=== PATIENT | female | born 1985 | race Caucasian/White ===

== ENCOUNTER 2016-08-21 22:28 | Outpatient (CLI) | payer MEDICAID ==
[2016-08-21 22:56] LABS: APPEARANCE,URINE SLIGHTLY-CLOUDY; BILIRUBIN,URINE NEGATIVE (NEGATIVE); GLUCOSE, URINE NEGATIVE (NEGATIVE); KETONES,URINE NEGATIVE (NEGATIVE); LEUKOCYTE ESTERASE,URINE TRACE (NEGATIVE); NITRITE,URINE NEGATIVE (NEGATIVE); PROTEIN,URINE NEGATIVE (NEGATIVE); URINE SPECIFIC GRAVITY 1.018; UROBILINOGEN,URINE NEGATIVE mg/dL (<2.0)
[2016-08-21 23:13] LABS: URINE BARBITURATES SCREEN NEGATIVE; URINE METHADONE SCREEN NEGATIVE; URINE OPIATES LOW NEGATIVE; URINE PHENCYCLIDINE SCREEN NEGATIVE
[2016-08-22 00:30] LABS: CHLAM PCR NOT DETECTED (NOT DETECT)
--- NOTE | 2016-08-22 04:45 | Antepartum Discharge Summary ---
Antepartum DC Datetime Report Generated by CPN: 08/22/2016 04:45 DIET/ACTIVITY/RESTRICTIONS Diet: Regular (08/22/2016 00:54:Jessie Murray, RN) Activity: Normal Activity (08/22/2016 00:54:Jessie Murray, RN) TEACHING/INSTRUCTIONS/REFERRALS Instructions Given To: Patient (08/22/2016 00:54:Jessie Murray, RN) Instructions Understood: Patient Verbalized Understanding (08/22/2016 00:54:Jessie Murray, RN) Referrals: None (08/22/2016 00:54:Jessie Murray, RN) Educational Materials- Other: Labor (08/22/2016 00:54:Jessie Murray, RN) DISCHARGE INFORMATION Discharged AMA: No (08/22/2016 00:54:Jessie Murray, RN) Discharge Date/Time: 08/22/2016 00:48 (08/22/2016 00:54:Jessiegarcia Murray RN) Discharged To: Home (08/22/2016 00:54:Jessie Trevor RN) Discharge Provider Name: Anderson (08/22/2016 00:54:Jessie Murray RN) Discharge Method: Ambulatory (08/22/2016 00:54:Jessie Murray, RN) Condition: Stable (08/22/2016 00:54:Jessie Murray, RN) FOLLOW UP INFORMATION Follow Up With: [facility] (08/22/2016 00:54:Jessie Murray RN) Follow Up On: As Scheduled (08/22/2016 00:54:Jessie Murray, RN) Follow Up Phone Number: [facility] - (08/22/2016 00:54:Jessie Murray RN) Comments: advised patient to return for contractions, decreased movement, bleeding like a period, or leaking of fluid. Patient without questions at this time. (08/22/2016 00:54:Jessie Murray RN)
--- NOTE | 2016-08-22 04:45 | L&D Discharge Summary ---
OB Discharge Summary Datetime Report Generated by CPN: 08/22/2016 04:45 DISCHARGE DIAGNOSIS Diagnosis/Symptoms: False Labor Diagnoses/Symptoms Other: negative priscila/chlam Gestation: 25.2 Number of Babies in Womb: 1 Parity: 1 DIET/ACTIVITY/RESTRICTIONS Diet: Regular Activity: Normal Activity TEACHING/INSTRUCTIONS/REFERRALS Instructions Given To: Patient Instructions Understood: Patient Verbalized Understanding Referrals: None Educational Materials- Other: Labor DISCHARGE INFORMATION Discharged AMA: No Discharge Date/Time: 08/22/2016 00:48 Discharged To: Home Discharge Provider Name: Anderson Discharge Method: Ambulatory Condition: Stable FOLLOW UP INFORMATION Follow Up With: [facility] Follow Up On: As Scheduled Follow Up Phone Number: [facility] - Comments: advised patient to return for contractions, decreased movement, bleeding like a period, or leaking of fluid. Patient without questions at this time.
--- NOTE | 2016-08-22 04:45 | L&D Flow Sheet ---
LD Flowsheet Datetime Report Generated by CPN: 08/22/2016 04:45 Datetime: 08/22/2016 00:45 NBP Sys/Anahy/Mean (mmHg): 129 (QS system process) : 69 (QS system process) : 92 (QS system process) Pulse: 98 (QS system process) Additional Nursing Comments: Pt okay for discharge. (Lisa Lattibeadelphine, RN) LaborFlag: Antepartum (QS system process) Datetime: 08/22/2016 00:44 Uterine Activity Monitor Mode: Palpation (Jessie Murray, RN) Frequency (min): none (Jessie Murray, RN) Datetime: 08/22/2016 00:31 Respirations: 18 (Jessie Murray, RN) Temperature (F): 97.9 (Jessie Murray, RN) Temperature (C): 36.6 (QS system process) Uterine Activity Monitor Mode: External (Jessie Murray, RN) Frequency (min): none (Jessie Murray, RN) Contraction Comments: toco baseline at 0 (Jessie Murray, RN) Pain Pain Scale: 0 (Jessie Murray, RN) Pain Presence: None/Denies (Jessie Murray, RN) Pain Type: N/A (Jessie Murray, RN) LaborFlag: Antepartum (QS system process) Datetime: 08/22/2016 00:00 Uterine Activity Monitor Mode: External; Palpation (Jessie Murray, RN) Frequency (min): none (Jessie Murray, RN) Contraction Comments: toco baseline at 0 (Jessie Murray, RN) Datetime: 08/21/2016 23:34 Uterine Activity Monitor Mode: Palpation (Jessie Murray, RN) Frequency (min): none (Jessie Murray, RN) Datetime: 08/21/2016 23:30 Vital Signs Stage of : Antepartum (Jessie Murray, RN) Uterine Activity Monitor Mode: External; Palpation (Jessie Murray, RN) Frequency (min): none (Jessie Murray, RN) Communication Communication: RN at Bedside; RN Reviewed Strip (Jessie Murray, RN) Datetime: 08/21/2016 23:00 Vital Signs Stage of : Antepartum (Jessie Murray, RN) Uterine Activity Monitor Mode: External; Palpation (Jessie Murray, RN) Frequency (min): none (Jessie Murray, RN) Communication Communication: RN at Bedside (Jessie Murray, RN) Datetime: 08/21/2016 22:54 NBP Sys/Anahy/Mean (mmHg): 129 (QS system process) : 74 (QS system process) : 94 (QS system process) Pulse: 100 (QS system process) Datetime: 08/21/2016 22:51 Pain Pain Scale: 0 (Jessie Murray, RN) Pain Presence: None/Denies (Jessie Murray, RN) Pain Type: N/A (Jessie Murray, RN) Vaginal Exam Vaginal Bleeding: None (Jessie Murray, RN) Maternal Assessment Level of Consciousness: Fully Conscious (Jessie Murray, RN) DTR's/Clonus: DTRs 2+; No Clonus (Jessie Murray, RN) Headache: Denies (Jessie Murray, RN) Breath Sounds, Left: Clear and Equal (Jessie Murray, RN) Breath Sounds, Right: Clear and Equal (Jessie Murray, RN) Nausea/Vomiting: Denies (Jessie Murray, RN) RUQ Epigastric Pain: Denies (Jessie Murray, RN) Datetime: 08/21/2016 22:47 Assessment A Monitor Mode: External US (Jessie HO Murray) FHR Baseline Rate : 145 (Jessiegarcia Murray RN)
--- NOTE | 2016-08-22 04:45 | L&D Admission Assessment ---
LD ADM ASMT Datetime Report Generated by CPN: 08/22/2016 04:45 PATIENT ASSESSMENT Assessment Type: Triage (08/21/2016 22:51:Jessie Murray, RN) WEIGHT Weight (lb): 262 (08/21/2016 22:41:QS system process) Weight (kg): 119.1 (08/21/2016 22:41:QS system process) PAIN Pain Scale: 0 (08/22/2016 00:31:Jessie Murray, RN) Pain Scale: 0 (08/21/2016 22:51:Jessie Murray, RN) Pain Presence: None/Denies (08/22/2016 00:31:Jessie Murray, RN) Pain Presence: None/Denies (08/21/2016 22:51:Jessie Murray, RN) Pain Type: N/A (08/22/2016 00:31:Jessie Murray, RN) Pain Type: N/A (08/21/2016 22:51:Jessie Murray, RN) CONTRACTIONS Frequency (min): none (08/22/2016 00:44:Jessie Murray, RN) Frequency (min): none (08/22/2016 00:31:Jessie Murray, RN) Frequency (min): none (08/22/2016 00:00:Jessie Murray, RN) Frequency (min): none (08/21/2016 23:34:Jessie Murray, RN) Frequency (min): none (08/21/2016 23:30:Jessie Murray, RN) Frequency (min): none (08/21/2016 23:00:Jessie Murray, RN) Contraction Comments: toco baseline at 0 (08/22/2016 00:31:Jessie Murray, RN) Contraction Comments: toco baseline at 0 (08/22/2016 00:00:Jessie Murray, RN) NEURO Level of Consciousness: Fully Conscious (08/21/2016 22:51:Jessie Murray, RN) DTR's/Clonus: DTRs 2+; No Clonus (08/21/2016 22:51:Jessie Murray, RN) Headache: Denies (08/21/2016 22:51:Jessie Murray, RN) Dizziness: No (08/21/2016 22:51:Jessie Murray, RN) Blurred Vision: No (08/21/2016 22:51:Jessie Murray, RN) Extremity Numbness/Tingling : None (08/21/2016 22:51:Jessie Murray, RN) Extremity Movement: Full Range of Motion (08/21/2016 22:51:Jessie Murray, RN) CARDIOVASCULAR Heart Rhythm: Regular (08/21/2016 22:51:Jessie Murray RN) Nailbeds: [place] (08/21/2016 22:51:Jessie Murray RN) Capillary Refill: Less than 3 Seconds (08/21/2016 22:51:Jessie Murray RN) Lower Extremities Edema: None (08/21/2016 22:51:Jessie Murray RN) Lower Extremities Edema Degree: None (08/21/2016 22:51:Jessie Murray RN) Upper Extremities Edema: None (08/21/2016 22:51:eJssie Murray RN) Upper Extremities Edema Degree: None (08/21/2016 22:51:Jessie Murray RN) Facial Edema: None (08/21/2016 22:51:Jessie Murray RN) Vanessa's Sign Left Leg: Negative (08/21/2016 22:51:Jessie Murray RN) Vanessa's Sign Right Leg: Negative (08/21/2016 22:51:Jessie Murray RN) DVT RISK ASSESSMENT DVT Risk Age: Age less than 41 years (08/21/2016 22:51:Jessie Murray RN) DVT Risk BMI: BMI 31 to 40 (08/21/2016 22:51:Jessie Murray RN) DVT Risk Surgery: None Applicable (08/21/2016 22:51:Jessie Murray RN) DVT Risk Other: None Applicable (08/21/2016 22:51:Jessie Murray RN) DVT Risk Total: 1 (08/21/2016 22:51:QS system process) DVT Risk Text: Low Risk (<10%) No specific measures, early ambulation (08/21/2016 22:51:QS system process) RESPIRATORY Respiratory Effort: Unlabored; Regular Rhythm; Equal Expansion (08/21/2016 22:51:Jessie Murray, RN) Breath Sounds, Left: Clear and Equal (08/21/2016 22:51:Jessie Murray, RN) Breath Sounds, Right: Clear and Equal (08/21/2016 22:51:Jessie Murray, RN) Cough Productivity: None (08/21/2016 22:51:Jessie Murray, RN) GASTROINTESTINAL Nausea/Vomiting: Denies (08/21/2016 22:51:Jessie Murray, RN) Bowel Sounds: Normoactive (08/21/2016 22:51:Jessie Murray, RN) RUQ Epigastric Pain: Denies (08/21/2016 22:51:Jessie Murray, RN) Bowel Patterns: Soft, Formed Stool (08/21/2016 22:51:Jessie Murray, RN) Hemorrhoids: None (08/21/2016 22:51:Jessie Murray, RN) Diet Type: Regular diet (08/21/2016 22:51:Jessie Murray, RN) GENITOURINARY Frequency of Urination: No (08/21/2016 22:51:Jsesie Murray, RN) Urination Burning: No (08/21/2016 22:51:Jessie Murray, RN) CVA Tenderness: No (08/21/2016 22:51:Jessie Murray, RN) INTEGUMENTARY Skin Color: Normal for Race (08/21/2016 22:51:Jessie Murray, RN) Skin Temperature: Warm (08/21/2016 22:51:Jessie Murray, RN) Skin Moisture: Dry (08/21/2016 22:51:Jessie Murray, RN) Surgical Scars: L ankle (08/21/2016 22:51:Jessie Murray, RN) JAIME SKIN ASSESSMENT Jaime Scale Sensory Perception: No Impairment- Responds to verbal commands. Has no sensory deficit which would limit ability to feel or voice pain or discomfort (08/21/2016 22:51:Jessie Murray RN) Jaime Scale Moisture: Rarely Moist- Skin is usually dry. Linen only requires changing at routine intervals (08/21/2016 22:51:Jessie Murray RN) Jaime Scale Activity: Walks Frequently- Walks outside the room at least twice a day and inside room at least every 2 hours during the day. (08/21/2016 22:51:Jessie Murray RN) Jaime Scale Mobility: No Limitations- Makes major and frequent changes in position without assistance (08/21/2016 22:51:Jessie Murray RN) Jaime Scale Nutrition: Excellent- Eats most of every meal. Never refuses a meal. Usually eats a total of 4 or more servings of meat and dairy products. Occasionally eats between meals. Does not require supplementation (08/21/2016 22:51:Jessie Murray RN) Jaime Scale Friction and Shear: No Apparent Problem- Moves in bed and in chair independently and has sufficient muscle strength to lift up completely during move. Maintains good position in bed or chair at all times (08/21/2016 22:51:Jessie Murray RN) Jaime Scale Total: 23 (08/21/2016 22:51:QS system process) Jaime Scale Risk: No Risk of Pressure Ulcer Noted at this Time (08/21/2016 22:51:QS system process) SUPPORT Emotional State: Calm/Relaxed (08/21/2016 22:51:Jessie Murray, RN) SAFETY Call Hinojosa Within Reach: Yes (08/21/2016 22:51:Jessie Murray, RN) Side Rails Up: Yes (08/21/2016 22:51:Jessie Murray, RN) Bed Wheels Locked: Yes (08/21/2016 22:51:Jessie Murray, RN) Arm Bands Present: Yes (08/21/2016 22:51:Jessie Murray, RN) Isolation: [place] (08/21/2016 22:51:Jessie Murray, RN) FALL SCREEN Fall Risk History of Falling: (0) No (08/21/2016 22:51:Jessie Murray RN) Fall Risk Secondary Diagnosis: (0) No (08/21/2016 22:51:Jessie Murray RN) Fall Risk Ambulatory Aid: (0) None/Bedrest/Wheelchair/Nurse Assist (08/21/2016 22:51:Jessie Murray RN) Fall Risk IV Therapy: (0) No (08/21/2016 22:51:Jessie Murray RN) Fall Risk Gait: (0) Normal/Bedrest/Immobile (08/21/2016 22:51:Jessie Murray RN) Fall Risk Mental Status: (0) Oriented to Own Ability (08/21/2016 22:51:Jessie Murray RN) Fall Risk Score: 0 (08/21/2016 22:51:QS system process) Fall Risk Score Definition: No Risk: No action required (08/21/2016 22:51:QS system process) BABY A FHR Baseline Rate (bpm) Baby A: 145 (08/21/2016 22:47:Jessie Murray RN)
--- NOTE | 2016-08-22 04:45 | L&D Current Admission ---
Current Admit Datetime Report Generated by CPN: 08/22/2016 04:45 ADMISSION INFORMATION Chief Complaint: Other (Annotations: suspects chlamydia infection) (08/21/2016 22:51:Jessie Trevor, HO)
--- NOTE | 2016-08-22 04:45 | L&D General Admission ---
General Admit Datetime Report Generated by CPN: 08/22/2016 04:45 INFORMATION Patient Age: 31 (08/21/2016 22:28:QS system process) EDC: 12/02/2016 00:00 (08/21/2016 22:43:Lisa Roberts RN) : 3 (08/21/2016 22:43:Lisa Roberts RN) Para: 1 (08/22/2016 00:54:Jessie Murray RN) Para: 1 (08/21/2016 22:43:Lisa Roberts RN) Term: 1 (08/21/2016 22:43:Lisa Roberts RN) : 0 (08/21/2016 22:43:Lisa Roberts RN) Spontaneous Abortions: 1 (08/21/2016 22:43:Lisa Roberts RN) Induced Abortions: 0 (08/21/2016 22:43:Lisa Roberts RN) Livin (08/21/2016 22:43:Lisa Roberts RN) Cesareans: 0 (08/21/2016 22:43:Lisa Roberts RN) VBACs: 0 (08/21/2016 22:43:Lisa Roberts RN) Ectopic: 0 (08/21/2016 22:43:Lisa Roberts RN) Multiple Births: 0 (08/21/2016 22:43:Lisa Roberts RN) Baby, Number in Womb: 1 (08/22/2016 00:54:Jessie Murray RN) Baby, Number in Womb: 1 (08/21/2016 22:43:Lisa oRberts RN) CARE Primary Solvent Plant Treater: [facility] (08/21/2016 22:43:Lisa Roberts RN) Solvent Plant Treater Other: [facility] (08/21/2016 22:43:Lisa Roberts RN) Height (in): 66 (08/21/2016 22:41:QS system process) ALLERGIES Medication Allergy: No (08/21/2016 22:43:Lisa Roberts RN) Medication Allergies: No Known Allergies (08/21/2016) (08/21/2016 22:40:QS system process) Medication Allergies: No Known Allergies (08/30/2015) (08/21/2016 22:28:QS system process) Latex Allergy: No Latex Allergies (08/21/2016 22:43:Jessie Murray RN) Food Allergies: none (08/21/2016 22:43:Jessie Murray RN) Environmental Allergies: seasonal (08/21/2016 22:43:Jessie Murray RN) COMMUNICATION Primary Language: Japanese (08/21/2016 22:43:Lisa Roberts RN) Medical Tx Preferred Language: Japanese (08/21/2016 22:43:Lisa Roberts RN) DEMOGRAPHICS Address: [address] [place] [id number] (08/21/2016 22:28:QS system process) Zipcode: [id number] (08/21/2016 22:28:QS system process) Home (08/21/2016 22:28:QS system process) Work (08/21/2016 22:28:QS system process) SSN: [id number] (08/21/2016 22:28:QS system process) Next of Kin Name: REFUSED PT (08/21/2016 22:28:QS system process) Next of Kin (08/21/2016 22:28:QS system process) Next of Kin Relationship: UNK (08/21/2016 22:28:QS system process) Date of : 1985 (08/21/2016 22:28:QS system process) Marital Status: Single (08/21/2016 22:28:QS system process) Sex: Female (08/21/2016 22:28:QS system process) Race: (08/21/2016 22:28:QS system process) Ethnicity: Non- or (08/21/2016 22:28:QS system process) Synagogue: None (08/21/2016 22:28:QS system process) DRUG AND ALCOHOL USE Alcohol: No (08/21/2016 22:43:Jessie Murray RN) Cigarettes: Former Smoker. [id number] (08/21/2016 22:43:Jessie Murray RN) Marijuana: No (08/21/2016 22:43:Jessie Murray RN) Cocaine: No (08/21/2016 22:43:Jessie Murray RN) Other Illicit Drugs: No (08/21/2016 22:43:Jessie Murray, RN) VACCINE HISTORY Influenza Vaccine: Yes (08/21/2016 22:43:Jessie Murray RN) Pneumococcal Vaccine: No (08/21/2016 22:43:Jessie Murray RN) Tetanus Vaccine: No (08/21/2016 22:43:Jessie Murray RN) Tdap Vaccine: No (08/21/2016 22:43:Jessie Murray RN) Hepatitis B Vaccine: Yes (08/21/2016 22:43:Jessie Murray, RN) Feeding Preference: Both (08/21/2016 22:43:Jessie Murray RN) Benefit of Breast Feed Discussed: Yes (08/21/2016 22:43:Jessie Murray RN) Circumcision: Yes (08/21/2016 22:43:Jessie Murray RN) Classes Attended: No (08/21/2016 22:43:Jessie Murray RN) Tubal Ligation: No (08/21/2016 22:43:Jessie Murray RN) Tubal Authorization Signed: N/A (08/21/2016 22:43:Jessie Murray RN) Consent: N/A (08/21/2016 22:43:Jessie Murray RN) Consent Signed: N/A (08/21/2016 22:43:Jessie Murray RN) Pain Management Plans: None (08/21/2016 22:43:Jessie Murray RN) Plans for Labor and Delivery: None (08/21/2016 22:43:Jessie Murray RN) Cultural/Spritual Practice: No (08/21/2016 22:43:Jessie Murray RN) Spir/Cult Dietary Needs: No (08/21/2016 22:43:Jessie Murray RN) LIVING SITUATION/DISCHARGE PLAN Living Arrangements: Apartment (08/21/2016 22:43:Jessie Murray RN) Adequate Access to:: Electric; Heat; Refrigeration; Plumbing/Running water; Phone; Transportation (08/21/2016 22:43:Jessie Murray RN) WIC Program: Yes (08/21/2016 22:43:Jessie Murray RN) Currently Using Commun Resources: Yes (08/21/2016 22:43:Jessie Murray RN) Specify Current Resource Used: Medicaid (08/21/2016 22:43:Jessie Murray RN) Outside Agency/Corporate Legal Secretary: No (08/21/2016 22:43:Jessie Murray RN) Car Seat for Discharge: Yes (08/21/2016 22:43:Jessie Murray RN) Adoption Requested: No (08/21/2016 22:43:Jessie Murray RN) Pt Contact w/ Post : N/A (08/21/2016 22:43:Jessie Murray RN) LABS Blood Type: O Positive (08/21/2016 22:43:Lisa Roberts RN) Antibody Screen: Negative (08/21/2016 22:43:Lisa Roberts RN) Rho(G) this : Not Applicable (08/21/2016 22:43:Lisa Roberts RN) RPR/VDRL: Nonreactive (08/21/2016 22:43:Lisa Roberts RN) HIV Results: Negative (08/21/2016 22:43:Lisa Roberts RN) Hepatitis B: Negative (08/21/2016 22:43:Lisa Roberts RN) Rubella: Immune (08/21/2016 22:43:Lisa Roberts RN) Varicella: Non Susceptible (08/21/2016 22:43:Lisa Roberts RN) OB/PREVIOUS HISTORY Previous Procedures: Ultrasound; NST (08/21/2016 22:43:Jessie Murray RN) Current Procedures: Ultrasound; NST (08/21/2016 22:43:Jessie Murray RN) History of Previous : No (08/21/2016 22:43:Jessie Murray RN) History of Gestational Diabetes: No (08/21/2016 22:43:Jessie Murray RN) History of PIH: No (08/21/2016 22:43:Jessie Murray RN) History of Incompetent Cervix: No (08/21/2016 22:43:Jessie Murray RN) History of Placenta Previa/Abrup: No (08/21/2016 22:43:Jessie Murray RN) History of Macrosomia: No (08/21/2016 22:43:Jessie Murray RN) History of IUGR: No (08/21/2016 22:43:Jessie Murray RN) History of Hemorrhage: No (08/21/2016 22:43:Jessie Murray RN) History of Loss/Stillborn: No (08/21/2016 22:43:Jessie Murray RN) History of : No (08/21/2016 22:43:Jessie Murray RN) History of D (Rh) Sensitization: No (08/21/2016 22:43:Jessie Murray RN) History Recurrent Loss/Stillborn: No (08/21/2016 22:43:Jessie Murray RN) History Depression/PP Depression: No (08/21/2016 22:43:Jessie Murray RN) History of Uterine Anomaly/JANE: No (08/21/2016 22:43:Jessie Murray RN) History of Infertility: No (08/21/2016 22:43:Jessie Murray RN) History of ART Treatment: No (08/21/2016 22:43:Jessei Murray RN) History of JANE: No (08/21/2016 22:43:Jessie Murray RN) Comments Obstetrical History: G1: 2009 male 8 pounds 2 ounces G2: SAB 2015 G3: Current (08/21/2016 22:43:Jessie Murray RN) MEDICAL HISTORY Med Hx Diabetes: No (08/21/2016 22:43:Jessie Murray RN) Med Hx Hypertension: No (08/21/2016 22:43:Jessie Murray RN) Med Hx Heart Disease: No (08/21/2016 22:43:Jessie Murray RN) Med Hx Autoimmune Disorder: No (08/21/2016 22:43:Jessie Murray RN) Med Hx Kidney Disease/UTI: No (08/21/2016 22:43:Jessie Murray RN) Med Hx Neurologic/Epilepsy: No (08/21/2016 22:43:Jessie Murray RN) Med Hx Psychiatric Disorders: No (08/21/2016 22:43:Jessie Murray RN) Med Hx Hepatitis/Liver Disease: No (08/21/2016 22:43:Jessie Murray RN) Med Hx Varicosities/Phlebitis: No (08/21/2016 22:43:Jessie Murray RN) Med Hx Thyroid Dysfunction: No (08/21/2016 22:43:Jessie Murray RN) Med Hx Trauma/Violence: No (08/21/2016 22:43:Jessie Murray RN) Med Hx Blood Transfusion: No (08/21/2016 22:43:Jessie Murray RN) Med Hx Pulmonary (Asthma,TB): No (08/21/2016 22:43:Jessie Murray RN) Med Hx Breast: No (08/21/2016 22:43:Jessie Murray RN) Med Hx TRACK GRINDER Surgery: No (08/21/2016 22:43:Jessie Murray RN) Med Hx Hospitalization/Surgery: Yes (08/21/2016 22:43:Jessie Murray RN) Med Hx Anesthetic Complications: No (08/21/2016 22:43:Jessie Murray RN) Med Hx Abnormal Pap Smear: No (08/21/2016 22:43:Jessie Murray RN) Other Medical Diseases: No (08/21/2016 22:43:Jessie Murray RN) Med Hx Significant Family Hx: No (08/21/2016 22:43:Jessie Murray RN) Details of Med/Surg Hx: surgery on L ankle 2013, childbirth 2008 (08/21/2016 22:43:Jessie Murray RN) INFECTIOUS HISTORY Inf Hx Gonorrhea: No (08/21/2016 22:43:Jessie Murray RN) Inf Hx Chlamydia: Yes (08/21/2016 22:43:Jessie Murray RN) Inf Hx Syphilis: No (08/21/2016 22:43:Jessie Murray RN) Inf Hx HIV/AIDS: No (08/21/2016 22:43:Jessie Murray RN) Inf Hx Human Papilloma Virus: No (08/21/2016 22:43:Jessie Murray RN) Inf Hx Pt/Partner Genital Herpes: No (08/21/2016 22:43:Jessie Murray RN) Inf Hx Tuberculosis/Exposure: No (08/21/2016 22:43:Jessie Murray RN) Inf Hx Hepatitis B,C: No (08/21/2016 22:43:Jessie Murray RN) Inf Hx Rash or Viral Illness: No (08/21/2016 22:43:Jessie Murray RN) Details of Infectious Hx: Chlamydia 06/2016 (08/21/2016 22:43:Jessie Murray RN) GENETIC HISTORY Gen Hx Age >=35 at [place]: No (08/21/2016 22:43:Jessie Murray RN) Gen Hx Thalassemia: No (08/21/2016 22:43:Jessie Murray RN) Gen Hx Congenital Heart Defect: No (08/21/2016 22:43:Jessie Murray RN) Gen Hx Neural Tube Defect: No (08/21/2016 22:43:Jessie Murray RN) Gen Hx Down's Syndrome: No (08/21/2016 22:43:Jessie Murray RN) Gen Hx Nestor-Sachs: No (08/21/2016 22:43:Jessie Murray RN) Gen Hx Suha: No (08/21/2016 22:43:Jessie Murray RN) Gen Hx Familial Dysautonomia: No (08/21/2016 22:43:Jessie Murray RN) Gen Hx Sickle Cell Disease/Trait: No (08/21/2016 22:43:Jessie Murray RN) Gen Hx Hemophilia/Blood Disorder: No (08/21/2016 22:43:Jessie Murray RN) Gen Hx Muscular Dystrophy: No (08/21/2016 22:43:Jessie Murray RN) Gen Hx Cystic Fibrosis: No (08/21/2016 22:43:Jessie Murray RN) Gen Hx [place] Chorea: No (08/21/2016 22:43:Jessie Murray RN) Gen Hx Mental Retardation/Autism: No (08/21/2016 22:43:Jessie Murray RN) Gen Hx Tested for Fragile X: No (08/21/2016 22:43:Jessie Murray RN) Gen Hx Other Inher/Chromosomal: No (08/21/2016 22:43:Jessie Murray RN) Gen Hx Maternal Metabolic DO: No (08/21/2016 22:43:Jessie Murray RN) Gen Hx Pt Father or FOB Defect: No (08/21/2016 22:43:Jessie Murray RN) Gen Hx Other Genetic History: No (08/21/2016 22:43:Jessie Murray RN) Gen Hx Drugs/Meds since LMP: No (08/21/2016 22:43:Jessie Murray RN)
== END 2016-08-22 00:48 | disposition home or self-care (01) ==
LOC: LC 22:28
PROVIDERS: ATTEND Obstetrics & Gynecology
PROC: 4A1HXCZ Monitoring of Products of Conception, Cardiac Rate, External Approach (ICD-10-PCS; principal; 2016-08-21)
DX: O47.02 False labor before 37 completed weeks of gestation, second trimester (principal); Z3A.25 25 weeks gestation of pregnancy
CPT/HCPCS: 80307; 81005; 87491; 87591

== ENCOUNTER 2016-11-28 10:16 | Outpatient (CLI) | payer MEDICAID ==
[2016-11-28 11:13] LABS: APPEARANCE,URINE SLIGHTLY-CLOUDY; BILIRUBIN,URINE NEGATIVE (NEGATIVE); GLUCOSE, URINE NEGATIVE (NEGATIVE); KETONES,URINE NEGATIVE (NEGATIVE); LEUKOCYTE ESTERASE,URINE SMALL (NEGATIVE); NITRITE,URINE NEGATIVE (NEGATIVE); PROTEIN,URINE NEGATIVE (NEGATIVE); URINE SPECIFIC GRAVITY 1.014; UROBILINOGEN,URINE NEGATIVE mg/dL (<2.0)
[2016-11-28 11:28] LABS: ABSOLUTE BASOPHILS # (AUTO) 0.1 10^3/uL (0.0-0.2); ABSOLUTE EOSINOPHILS # (AUTO) 0.2 10^3/uL (0.0-0.6); ABSOLUTE LYMPHOCYTES (AUTO) 2.1 10^3/uL (0.5-4.7); ABSOLUTE MONOCYTES (AUTO) 0.7 10^3/uL (0.1-1.4); ABSOLUTE NEUT (AUTO) 6.6 10^3/uL (1.7-8.2); BASOPHILS % (AUTO) 0.6 % (0-2); HEMATOCRIT 36.8 % (36.0-47.0); HEMOGLOBIN 12.7 g/dL (12.0-15.5); HGB HCT DIFFERENCE 1.3; LYMPHOCYTES % (AUTO) 21.7 % (13-45); MEAN CORPUSCULAR HEMOGLOBIN 30.2 pg (27.0-33.4); MEAN CORPUSCULAR HGB CONC 34.5 g/dL (32.0-36.0); MEAN CORPUSCULAR VOLUME 88 fl (80-97); MONOCYTES % (AUTO) 7.3 % (3-13); RED CELL DISTRIBUTION WIDTH 14.1 % (11.5-14.0); SEGMENTED NEUTROPHILS % (AUTO) 68.4 % (42-78); WHITE BLOOD COUNT 9.6 10^3/uL (4.0-10.5)
[2016-11-28 11:40] LABS: URINE BARBITURATES SCREEN NEGATIVE; URINE METHADONE SCREEN NEGATIVE; URINE OPIATES LOW NEGATIVE; URINE PHENCYCLIDINE SCREEN NEGATIVE
[2016-11-28 11:47] LABS: ALANINE AMINOTRANSFERASE 28 U/L (9-52); ALBUMIN 3.5 g/dL (3.5-5.0); ALKALINE PHOSPHATASE 126 U/L (38-126); ANION GAP 10 (5-19); ASPARTATE AMINO TRANSFERASE 20 U/L (14-36); BILIRUBIN,DIRECT 0.2 mg/dL (0.0-0.4); BILIRUBIN,TOTAL 0.4 mg/dL (0.2-1.3); BLOOD UREA NITROGEN 9 mg/dL (7-20); CALCIUM 10.3 mg/dL (8.4-10.2); CARBON DIOXIDE 23 mmol/L (22-30); CHLORIDE 106 mmol/L (98-107); CREATININE RESULT 0.58 mg/dL (0.52-1.25); GLUCOSE 101 mg/dL (75-110); LDH 375 U/L (313-618); POTASSIUM 4.4 mmol/L (3.6-5.0); SODIUM 139.2 mmol/L (137-145); TOTAL PROTEIN 6.6 g/dL (6.3-8.2); URIC ACID 5.1 mg/dL (2.5-6.2)
[2016-11-28 11:55] LABS: URINE CREATININE 137.7 mg/dL (16-327); URINE PROTEIN 18.9 mg/dL (<12)
== END 2016-11-28 12:39 | disposition home or self-care (01) ==
LOC: LC 10:16
PROVIDERS: ATTEND Student in an Organized Health Care Education/Training Program
PROC: 4A1HXCZ Monitoring of Products of Conception, Cardiac Rate, External Approach (ICD-10-PCS; principal; 2016-11-28)
DX: O16.3 Unspecified maternal hypertension, third trimester (principal); O47.1 False labor at or after 37 completed weeks of gestation; Z3A.39 39 weeks gestation of pregnancy
CPT/HCPCS: 36415; 59025; 80053; 80307; 81001; 82570; 83615; 84156; 84550; 85025

== ENCOUNTER 2016-12-06 18:11 | Inpatient (IN) | payer MEDICAID ==
[2016-12-06 19:00] LABS: APPEARANCE,URINE CLOUDY; BILIRUBIN,URINE NEGATIVE (NEGATIVE); GLUCOSE, URINE 50 mg/dL (NEGATIVE); KETONES,URINE NEGATIVE (NEGATIVE); LEUKOCYTE ESTERASE,URINE MODERATE (NEGATIVE); NITRITE,URINE NEGATIVE (NEGATIVE); PROTEIN,URINE 100 mg/dL (NEGATIVE); UROBILINOGEN,URINE NEGATIVE mg/dL (<2.0)
[2016-12-06 19:13] LABS: AMNISURE (ROM) POSITIVE (NEGATIVE)
[2016-12-06] MEDS ORDERED: PENICILLIN G-K 5 MILLION UNIT VIAL ONE ×2 (19:29→23:46)
[2016-12-06] MEDS ORDERED: RINGERS SOLUTION,LACTATED 1,000 ML IV ONE (19:38)
[2016-12-06] MEDS ORDERED: PENICILLIN G POTASSIUM 5,000,000 UNIT in DEXTROSE 5%-WATER 100 ML IV ONE (19:38)
[2016-12-06 20:01] LABS: ABSOLUTE BASOPHILS # (AUTO) 0.1 10^3/uL (0.0-0.2); ABSOLUTE EOSINOPHILS # (AUTO) 0.1 10^3/uL (0.0-0.6); ABSOLUTE LYMPHOCYTES (AUTO) 2.3 10^3/uL (0.5-4.7); ABSOLUTE MONOCYTES (AUTO) 0.8 10^3/uL (0.1-1.4); BASOPHILS % (AUTO) 0.4 % (0-2); EOSINOPHILS % (AUTO) 1.1 % (0-6); HEMATOCRIT 38.3 % (36.0-47.0); HEMOGLOBIN 12.8 g/dL (12.0-15.5); HGB HCT DIFFERENCE 0.1; LYMPHOCYTES % (AUTO) 18.7 % (13-45); MEAN CORPUSCULAR HEMOGLOBIN 29.7 pg (27.0-33.4); MEAN CORPUSCULAR HGB CONC 33.5 g/dL (32.0-36.0); MEAN CORPUSCULAR VOLUME 89 fl (80-97); MONOCYTES % (AUTO) 6.2 % (3-13); RED BLOOD COUNT 4.31 10^6/uL (3.72-5.28); RED CELL DISTRIBUTION WIDTH 14.5 % (11.5-14.0); SEGMENTED NEUTROPHILS % (AUTO) 73.6 % (42-78); WHITE BLOOD COUNT 12.2 10^3/uL (4.0-10.5)
[2016-12-06] MEDS ORDERED: MISOPROSTOL 0.1 MG TABLET PV ONE (20:40)
[2016-12-06] MEDS ORDERED: MISOPROSTOL 0.1 MG TABLET ONE (20:47)
[2016-12-06] MEDS: MISOPROSTOL 0.1 MG TABLET PO SCH (21:08)
[2016-12-06] MEDS ORDERED: PENICILLIN G POTASSIUM 2,500,000 UNIT in DEXTROSE 5%-WATER 50 ML IV SCH (23:39)
[2016-12-06 23:49] LABS: URINE BARBITURATES SCREEN NEGATIVE; URINE METHADONE SCREEN NEGATIVE; URINE OPIATES LOW NEGATIVE; URINE PHENCYCLIDINE SCREEN NEGATIVE
[2016-12-06] MEDS: PENICILLIN G-K 5 MILLION UNIT VIAL IV SCH (23:51)
[2016-12-07] MEDS ORDERED: ZOLPIDEM TARTRATE 5 MG TABLET PO PRN ×2 (00:08→05:49)
[2016-12-07] MEDS ORDERED: OXYTOCIN/NORMAL SALINE 1,000 ML IV PRN ×2 (01:05→05:49)
[2016-12-07] MEDS ORDERED: ONDANSETRON HCL INJ/PF 4 MG/2 ML SDV ONE (01:11)
[2016-12-07] MEDS ORDERED: NALBUPHINE HCL INJ 10 MG/1 ML AMPULE ONE (01:11)
[2016-12-07] MEDS ORDERED: NALBUPHINE HCL INJ 10 MG/1 ML AMPULE INJ ONE (01:15)
[2016-12-07] MEDS ORDERED: ONDANSETRON HCL INJ/PF 4 MG/2 ML SDV IV ONE (01:15)
[2016-12-07] MEDS ORDERED: OXYTOCIN/NORMAL SALINE 0 UNIT/0 ML RTUINJ ONE (01:31)
[2016-12-07] MEDS: MISOPROSTOL 0.1 MG TABLET PO SCH (02:18)
[2016-12-07] MEDS ORDERED: EPHEDRINE SULFATE INJ 50 MG/1 ML AMPULE IV PRN (03:36)
[2016-12-07] MEDS ORDERED: BENZOIN/ALOE VERA/STORAX/TOLU TINCTURE 60 ML TP PRN (03:36)
[2016-12-07] MEDS ORDERED: EPHEDRINE SULFATE INJ 50 MG/1 ML AMPULE IV ONE (03:36)
[2016-12-07] MEDS ORDERED: BUPIVACAINE HCL 0.25 % INJ/PF (2.5 MG/1 ML) 30 ML VIAL INFIL ONE (03:36)
[2016-12-07] MEDS ORDERED: FENTANYL/BUPIVACAINE/NS/PF 100 ML EPI PRN (03:36)
[2016-12-07] MEDS ORDERED: EPHEDRINE SULFATE INJ 50 MG/1 ML AMPULE ONE (03:42)
[2016-12-07] MEDS ORDERED: FENTANYL/BUPIVACAINE/NS/PF 200 MCG/100 ML RTUINJ EPI ONE (03:43)
[2016-12-07] MEDS ORDERED: BUPIVACAINE HCL 0.25 % INJ/PF (2.5 MG/1 ML) 30 ML VIAL ONE (03:43)
[2016-12-07] MEDS ORDERED: PENICILLIN G-K 5 MILLION UNIT VIAL ONE (04:05)
[2016-12-07] MEDS: PENICILLIN G-K 5 MILLION UNIT VIAL IV SCH (04:31)
[2016-12-07] MEDS ORDERED: MISOPROSTOL 0.2 MG TABLET ONE (04:38)
[2016-12-07] MEDS ORDERED: LIDOCAINE 1% INJ-PF (10 MG/ML) 30 ML SDV ONE (04:39)
[2016-12-07] MEDS ORDERED: OXYTOCIN/NORMAL SALINE 20 UNIT/1,000 ML RTUINJ ONE (04:39)
[2016-12-07] MEDS ORDERED: ACETAMINOPHEN WITH CODEINE #3 TABLET PO PRN ×2 (05:49)
[2016-12-07] MEDS ORDERED: DIBUCAINE 1% OINTMENT 28 GM TP PRN (05:49)
[2016-12-07] MEDS ORDERED: BENZOCAINE/MENTHOL AEROSOL SPRAY 56 ML TOP PRN (05:49)
[2016-12-07] MEDS ORDERED: DIPH/PERTUSS(ACELL)/TETANUS VAC/PF 0.5 ML SYR (>=10YO) IM PRN (05:49)
[2016-12-07] MEDS ORDERED: MEASLES,MUMPS&RUBELLA VACC/PF 0.5 ML VIAL SUBCUT PRN (05:49)
[2016-12-07] MEDS: IBUPROFEN 800 MG TABLET PO SCH ×3 (06:08→21:17)
[2016-12-07] MEDS ORDERED: IBUPROFEN 800 MG TABLET ONE (06:10)
--- NOTE | 2016-12-07 06:18 | Delivery Summary ---
Del Sum A-C Datetime Report Generated by CPN: 12/07/2016 06:17 DELIVERY PERSONNEL DELIVERY PERSONNEL: ,[id number] Delivery Doctor:: Maria Luisa Ackerman MD Anesthesiologist:: Odilon Grajeda MD Labor and Delivery Nurse:: Niesha Arevalo RNasphalt layer Nurse:: Ana María Nevarez RN Fruit Harvester:: Beena Das RN Bench Manager/AUTO PARTS COUNTER PERSON: Sara Santillan CNA MATERNAL INFORMATION Delivery Anesthesia: Epidural Medications After Delivery: Pitocin Bolus-Please Comment Estimated Blood Loss (ml): 200 Maternal Complications: None LABOR SUMMARY EDC: 12/02/2016 00:00 No. Babies in Womb: 1 Attempted: No Labor Anesthesia: Epidural LABOR INFORMATION Reason for Induction: Premature Rupture of Membranes Onset of Labor: 12/07/2016 00:25 Complete Dilatation: 12/07/2016 04:48 Cervical Ripening Agents: Cytotec @ Oxytocin: Induction Group B Beta Strep: POSITIVE Antibiotics # of Doses: 3 Antibiotics Time of Last Dose: 0431 Name of Antibiotic Given: pcn MEMBRANES Membranes Rupture Method: Spontaneous Rupture of Membranes: 12/07/2016 16:30 Length of Rupture (hr): -11.37 Amniotic Fluid Color: Clear Amniotic Fluid Amount: Moderate Amniotic Fluid Odor: Normal STAGES OF LABOR Stage 1 hr: 4 Stage 1 min: 23 Stage 2 hr: 0 Stage 2 min: 20 Stage 3 hr: 0 Stage 3 min: 4 Total Time in Labor hr: 4 Total Time in Labor min: 47 VAGINAL DELIVERY Episiotomy: None Laceration Extension: Second Degree Laceration Type: Perineal Laceration Repair Note: 2-0 chromic repair in normal fashion Sponge Count Correct: N/A Sharps Count Correct: Yes CSECTION DELIVERY Primary Indication: N/A Secondary Indication: N/A CSection Incidence: N/A Labor: N/A Elective: N/A CSection Incision: N/A BABY A INFORMATION Infant Delivery Date/Time: 12/07/2016 05:08 Method of Delivery: Vaginal Born in Route : No : N/A Forceps: N/A Vacuum Extraction: N/A Shoulder Dystocia : No PRESENTATION/POSITION BABY A Presentation: Cephalic Cephalic Presentation: Vertex Vertex Position: Left Occipital Anterior Breech Presentation: N/A PLACENTA INFORMATION BABY A Placenta Delivery Time : 12/07/2016 05:12 Placenta Method of Delivery: Spontaneous Placenta Status: Delivered SCORES BABY A Heart Rate 1 min: >100 bpm Resp Effort 1 min: Good Cry Reflex Irritability 1 min: Cough or Sneeze or Pulls Away Muscle Tone 1 min: Active Motion Color 1 min: Body [place], Extremities Blue Resuscitation Effort 1 min: Tactile Stimulation SCORE 1 MIN: 9 Heart Rate 5 min: >100 bpm Resp Effort 5 min: Good Cry Reflex Irritability 5 min: Cough or Sneeze or Pulls Away Muscle Tone 5 min: Active Motion Color 5 min: Body [place], Extremities Blue Resuscitation Effort 5 min: Tactile Stimulation SCORE 5 MIN: 9 INFANT INFORMATION BABY A Gestational Age at Delivery: 40.5 Gestational Status: Full Term- 39- 40.6 Weeks Infant Outcome : Liveborn Infant Condition : Stable Infant Sex: Male IDENTIFICATION BABY A Infant Verification Date/Time: 12/07/2016 05:38 ID Band Number: [id number] Mother's Name Verified: Yes RN Verifying : K Mahi RN Additional Verifying Personnel: A Santillan RN WEIGHT/LENGTH BABY A Birthweight (gm): 3910 Infant Weight (lb): 8 Weight (oz): 10 Infant Length (in): 21.00 Length (cm): 53.34 CORD INFORMATION BABY A No. Cord Vessels: 3 Nuchal Cord : N/A Cord Blood Taken: Yes-For Eval (Mom's Blood Type - or O+) Infant Suction: Mouth; Nose ASSESSMENT BABY A Complications: None Infant Complications- Other: compound L hand Physical Findings at Delivery: Within Normal Limits Infant Respirations: Appears Normal Skin to Skin: Yes Product Development Coordinator/ALS Called : No Care By: Hali Nevarez RN/ R Sohail RN Transferred To: Remains with Mother BABY B INFORMATION : N/A SIGNATURES Signature: with User ID: [email or web address]
--- NOTE | 2016-12-07 09:09 | Admission Physical ---
Datetime Report Generated by CPN: 12/07/2016 09:09 CURRENT ADMISSION Chief Complaint: Suspected Ruptured Membranes Indication for Induction: PROM Admit Plan: Admit to Unit; Initiate Labor Induction Protocol Admit Plan- Other: cervical ripening with cytotec ALLERGIES Medication Allergies: No Medication Allergies: No Known Allergies (12/06/2016) Medication Allergies: No Known Allergies (08/21/2016) Medication Allergies: No Known Allergies (08/30/2015) Latex: No Latex Allergies Food Allergies: none Environmental Allergies: seasonal OBSTETRICAL HISTORY EDC: 12/02/2016 00:00 : 3 Para: 1 Para: 1 Term: 1 : 0 SAB: 1 IAB: 0 Ectopic: 0 Livin Cesareans: 0 VBACs: 0 Multiple Births: 0 Gestational Diabetes: No Rh Sensitization: No Incompetent Cervix: No JANE: No Infertility: No ART Treatment: No Uterine Anomaly: No IUGR: No Hx Previous C/S: No Macrosomia: No Hx Loss/Stillborn: No PIH: No Hx : No Placenta Previa/Abruption: No Depression/PP Depression: No PTL/PROM: No Post Hemorrhage: No Current Procedures: Ultrasound; NST Obstetrical History Comments: G1: 2008 male 8 pounds 2 ounces G2: 2015 G3: Current SEE RECORDS Alcohol: No Marijuana : No Cocaine: No Other Illicit Drugs: No Cigarettes: Former Smoker. 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 Surgery: No Heart Disease: No Hosp/Surgery: Yes Autoimmune Disorder: No Anesthetic Complications: No Kidney Disease: No Abnormal Pap Smear: No Neuro/Epilepsy: No Psychiatric Disorders: No Other Medical Diseases: No Hepatitis/Liver Disease: No Significant Family History: No Varicosities/Phlebitis: No Trauma/Violence : No Thyroid Dysfunction: No Medical History Comments: surgery on L ankle 2013, 2008 INFECTIOUS HISTORY Gonorrhea: No Genital Herpes: No Chlamydia: Yes Tuberculosis: No Syphilis: No Hepatitis: No HIV/AIDS Exposure: No Rash or Viral Illness: No HPV: No Infectious History Comments: Chlamydia 06/2016 PHYSICAL EXAM General: Normal HEENT: Normal Neurologic: Normal Thyroid: Normal Heart: Normal Lungs: Normal Breast: Normal Back: Normal Abdomen: Normal Genitourinary Exam: Normal Extremities: Normal DTRs: Normal Pelvic Type: Adequate Vital Signs: Reviewed VAGINAL EXAM Dilatation: 1 Effacement: 50 Station: -2 MEMBRANES Pooling: Positive Membranes: Ruptured Amniotic Fluid Color: Clear FETUS A EGA: 40.4 Monitoring: External US FHR- Baseline: 150 Variability: Moderate 6-25bpm Accelerations: 10X10 Decelerations: None FHR Category: Category I Estimated Weight (gm): 4000 Presentation: Vertex PLANS FOR LABOR AND DELIVERY Labor and Delivery: None Pain Management: None Feeding Preference: Both Benefit of Breast Feed Discussed: Yes Circumcision: Yes INFORMED CONSENT Signature: with User ID: [email or web address]
[2016-12-07] MEDS: SENNOSIDES/DOCUSATE 8.6-50 MG 1 EACH TABLET PO SCH (09:29)
[2016-12-07] MEDS: FERROUS SULFATE 325 MG TABLET PO SCH ×2 (09:29→17:39)
[2016-12-07] MEDS: PRENATAL VITAMIN W-O CA NO5/FE FUMARATE/FA CAPSULE PO SCH (09:29)
[2016-12-07] MEDS: DOCUSATE SODIUM 100 MG CAPSULE PO SCH ×2 (09:30→17:39)
--- NOTE | 2016-12-07 13:18 | PSYCHOLOGICAL NOTE ---
Psych Note - Psych Note Psych Note: Patient presenting odd asking staff if they put anthrax in her IV and vagina. Patient then thanked staff for not killing her. Patient states she had no mental health history and disclosed she only takes her vitamin. When asked about her concerns of being poisoned by anthrax the patient stated it was a joke; "I was in so much pain that I joked with the nurse saying they gave me anthrax." Patient then stated "I thought she knew I was joking, I am so sorry, I didn't hurt her feelings did I." Patient was observed interacting with her . She continued to disclose that she has not thought of a name yet. She stated "they told me I was having a boy, but for some reason I didn't believe them. I wanted a boy so bad I was afraid they were wrong." Patient was observed interacting with [facility] staff, asking questions about proper nursing and ensuring the baby is receiving all nutrients he needs. She also discussed circumcision with staff, to include payment and setting up external appointments. Patient is alert and orientated to person place time and circumstance. Mood is euthymic with congruent affect. Patient denies suicidal and homicidal ideation. Patient denies auditory visual hallucinations; patient is not demonstrating any behaviors congruent with responding to internal stimuli. No delusions are noted. Thought process is organized and linear. Conversational speech was within normal rate tone and prosody. Eye contact was well- maintained. Intellectual abilities appear to be within average range. Attention and concentration are good. Insight, judgment, impulse control are good. Deferred Impression\\plan: Patient is psychiatrically clear for discharge. Patient was observed with child and interacting with [facility] staff. Patient was appropriate at all times. Patient disclosed that she was in so much pain from the delivery that she joked with [facility] staff that they poison her with anthrax. Patient showed appropriate remorse for a possible misunderstanding. Patient states it was a joke. At this time there is no evidence of mental health concerns. Dr. Hurtado was consulted and the care and management of this patient; attending physician is in agreement with recommendations and disposition.
[2016-12-08] MEDS: IBUPROFEN 800 MG TABLET PO SCH ×3 (06:20→22:14)
[2016-12-08 06:44] LABS: HEMATOCRIT 32.6 % (36.0-47.0); HEMOGLOBIN 11.1 g/dL (12.0-15.5); HGB HCT DIFFERENCE 0.7; MEAN CORPUSCULAR HEMOGLOBIN 30.2 pg (27.0-33.4); MEAN CORPUSCULAR HGB CONC 33.9 g/dL (32.0-36.0); MEAN CORPUSCULAR VOLUME 89 fl (80-97); RED BLOOD COUNT 3.66 10^6/uL (3.72-5.28); RED CELL DISTRIBUTION WIDTH 14.5 % (11.5-14.0); WHITE BLOOD COUNT 10.4 10^3/uL (4.0-10.5)
--- NOTE | 2016-12-08 08:35 | PDOC PROGRESS REPORT ---
Subjective-OB Subjective: Post Delivery Day: 1 31 year old. Denies any needs at this time, states lochia is stable, pain is well controlled, voiding without difficulty, tolerating diet. Physical Exam (OB) Vital Signs: Temp Pulse Resp BP Pulse Ox 97.6 F 94 16 123/89 H 100 12/08/16 00:31 12/08/16 00:31 12/08/16 00:31 12/08/16 00:31 12/08/16 00:31 Intake & Output 12/07/16 12/08/16 12/09/16 06:59 06:59 06:59 Weight 120 kg - PIH/Pre-Eclampsia Clonus: Negative Headache: Absent Epigastric Pain: No Visual Changes: No - Lochia Lochia Amount: Scant < 10 ml Lochia Color: Rubra/Red - Abdomen Description: Soft Hernia Present: No Fundal Description: Firm Fundal Height: u/u - u/2 Objective-Diagnostic Laboratory: 12/08/16 06:26 12/08/16 06:26 WBC 10.4 RBC 3.66 L Hgb 11.1 L Hct 32.6 L MCV 89 MCH 30.2 MCHC 33.9 RDW 14.5 H Plt Count 188 Assessment and Plan(PN) - Assessment and Plan (1) Vaginal delivery Is this a current diagnosis for this admission?: YesPlan: routine pp care (2) Lost custody of children Is this a current diagnosis for this admission?: YesPlan: d/c planning psych consult - Time Spent with Patient Time with patient: Less than 15 minutes Critical Time spent with patient: Less than 15 minutes Medications reviewed and adjusted accordingly: Yes - Disposition Anticipated Discharge: Home Within: within 24 hours
[2016-12-08] MEDS: FERROUS SULFATE 325 MG TABLET PO SCH ×2 (10:30→18:04)
[2016-12-08] MEDS: PRENATAL VITAMIN W-O CA NO5/FE FUMARATE/FA CAPSULE PO SCH (10:30)
[2016-12-08] MEDS: SENNOSIDES/DOCUSATE 8.6-50 MG 1 EACH TABLET PO SCH (10:30)
[2016-12-08] MEDS: DOCUSATE SODIUM 100 MG CAPSULE PO SCH ×2 (10:30→18:04)
[2016-12-09] MEDS: IBUPROFEN 800 MG TABLET PO SCH (05:35)
--- NOTE | 2016-12-09 08:13 | PDOC DISCHARGE SUMMARY ---
Final Diagnosis Discharge Date: 12/09/16 - Final Diagnosis (1) Vaginal delivery Is this a current diagnosis for this admission?: Yes (2) Lost custody of children Is this a current diagnosis for this admission?: Yes Discharge Data - Discharge Medication Home Medications: Docusate Sodium [Colace 100 mg Capsule] 100 mg PO BID #60 capsule 12/09/16 Ibuprofen [Motrin 800 mg Tablet] 800 mg PO Q8 #60 tablet 12/09/16 Gestational Age: 40.5 Reason(s) for Admission: PROM, Group B Strep Positive Procedures: NST Intrapartum Procedure(s): Spontaneous Vaginal Delivery Complication(s): Laceration-Vaginal Laceration-Degree: 2nd - Data Baby 1 Male at 1 minute: 9 at 5 minutes: 9 Weight: 3910 kg Home with Mother: Yes Complications: No - Diagnosis Test Laboratory: Temp Pulse Resp BP Pulse Ox 98.0 F 80 18 122/72 99 12/08/16 21:30 12/08/16 21:30 12/08/16 21:30 12/08/16 21:30 12/08/16 21:30 12/06/16 12/06/16 12/06/16 18:47 19:30 20:48 RBC 4.31 Hgb 12.8 Hct 38.3 Urine Opiates Screen Cancelled NEGATIVE 12/08/16 06:26 RBC 3.66 L Hgb 11.1 L Hct 32.6 L Urine Opiates Screen - Discharge information/Instructions Discharge Activity: Activity As Tolerated, Balance Activity w/Rest, No Lifting Over 10 Pounds, Pelvic Rest, No tub bath Discharge Diet: Regular Disposition: HOME, SELF-CARE Follow up with: [facility] in: 4, Weeks
[2016-12-09 08:37] VITALS: BP 122/72
[2016-12-09] MEDS: SENNOSIDES/DOCUSATE 8.6-50 MG 1 EACH TABLET PO SCH (10:01)
[2016-12-09] MEDS: DOCUSATE SODIUM 100 MG CAPSULE PO SCH (10:01)
[2016-12-09] MEDS: FERROUS SULFATE 325 MG TABLET PO SCH (10:01)
[2016-12-09] MEDS: PRENATAL VITAMIN W-O CA NO5/FE FUMARATE/FA CAPSULE PO SCH (10:01)
== END 2016-12-09 11:00 | disposition home or self-care (01) | DRG 775 ==
LOC: LC 18:11 → LR 19:18 → 2S 12-07 09:07
PROVIDERS: ADMIT Obstetrics & Gynecology; ATTEND Obstetrics & Gynecology
PROC: 10E0XZZ Delivery of Products of Conception, External Approach (ICD-10-PCS; principal; 2016-12-07)
PROC: 0KQM0ZZ Repair Perineum Muscle, Open Approach (ICD-10-PCS; 2016-12-07)
DX: O42.02 Full-term premature rupture of membranes, onset of labor within 24 hours of rupture (principal); Z68.41 Body mass index [BMI] 40.0-44.9, adult; O99.824 Streptococcus B carrier state complicating childbirth; O70.1 Second degree perineal laceration during delivery; O99.214 Obesity complicating childbirth; O32.6XX0 Maternal care for compound presentation, not applicable or unspecified; Z3A.40 40 weeks gestation of pregnancy; Z37.0 Single live birth; Z63.79 Other stressful life events affecting family and household
CPT/HCPCS: 36415; 80307; 81005; 84112; 85025; 85027; 86592; 86850; 86900; 86901; 94760; J2300; J2405; J2540; J2590; J3490

== ENCOUNTER 2018-09-01 16:17 | Emergency (ER) | payer MEDICAID ==
[2018-09-01] MEDS ORDERED: MECLIZINE HCL 25 MG TABLET PO ONE (20:12)
[2018-09-01] MEDS ORDERED: ONDANSETRON 4 MG TAB.RAPDIS PO ONE (20:12)
--- NOTE | 2018-09-01 20:14 | ER Document Report ---
ED Medical Screen (RME) - General Chief Complaint: Vertigo Stated Complaint: DIZZINESS Time Seen by Provider: 09/01/18 20:08 Primary Care Provider: CARLINE LAMB MD [Primary Care Provider] - Follow up as needed Notes: 33-year-old female chief complaint of 2 days of symptoms where she gets lightheaded, feels like she is spinning around, and becomes nauseated. This caused her to vomit. She states she has had this intermittently for a while but much worse over the past 2 days. Denies headache, fever, or any other complaints. TRAVEL OUTSIDE OF THE [place] IN LAST 30 DAYS: No - Related Data Allergies/Adverse Reactions: No Known Allergies Allergy (Verified 09/01/18 20:06) Past Medical History - Social History Frequency of alcohol use: None Drug Abuse: None Renal/ Medical History: Denies: Hx Peritoneal Dialysis Past Surgical History: Reports: Hx Orthopedic Surgery - left ankle - Immunizations Hx Diphtheria, Pertussis, Tetanus Vaccination: Yes Physical Exam - Vital signs Vitals: Temp Pulse Resp BP Pulse Ox 98.6 F 97 16 133/61 H 100 09/01/18 16:26 09/01/18 16:26 09/01/18 16:26 09/01/18 16:26 09/01/18 16:26 - General General appearance: Appears well In distress: None - HEENT Eyes: Normal Conjunctiva: Normal Extraocular movements intact: Yes Pharynx: Normal Course - Vital Signs Vital signs: Temp Pulse Resp BP Pulse Ox 98.6 F 97 16 133/61 H 100 09/01/18 16:26 09/01/18 16:26 09/01/18 16:26 09/01/18 16:26 09/01/18 16:26 Doctor's Discharge - Discharge Referrals: CARLINE LAMB MD [Primary Care Provider] - Follow up as needed
[2018-09-01 21:29] LABS: ABSOLUTE BASOPHILS # (AUTO) 0.1 10^3/uL (0.0-0.2); ABSOLUTE EOSINOPHILS # (AUTO) 0.3 10^3/uL (0.0-0.6); ABSOLUTE LYMPHOCYTES (AUTO) 2.9 10^3/uL (0.5-4.7); ABSOLUTE MONOCYTES (AUTO) 0.6 10^3/uL (0.1-1.4); ABSOLUTE NEUT (AUTO) 4.2 10^3/uL (1.7-8.2); BASOPHILS % (AUTO) 1.1 % (0-2); EOSINOPHILS % (AUTO) 3.4 % (0-6); HEMATOCRIT 36.2 % (36.0-47.0); HEMOGLOBIN 12.4 g/dL (12.0-15.5); MEAN CORPUSCULAR HEMOGLOBIN 28.9 pg (27.0-33.4); MEAN CORPUSCULAR HGB CONC 34.2 g/dL (32.0-36.0); MEAN CORPUSCULAR VOLUME 84 fl (80-97); MONOCYTES % (AUTO) 7.4 % (3-13); PLATELET COUNT 343 10^3/uL (150-450); RED BLOOD COUNT 4.29 10^6/uL (3.72-5.28); SEGMENTED NEUTROPHILS % (AUTO) 52.1 % (42-78); TOTAL CELLS COUNTED % (AUTO) 100 %; WHITE BLOOD COUNT 8.1 10^3/uL (4.0-10.5)
[2018-09-01 21:41] LABS: AMORPHOUS SEDIMENT,URINE TRACE /HPF; APPEARANCE,URINE SLIGHTLY-CLOUDY; BILIRUBIN,URINE NEGATIVE (NEGATIVE); COLOR,URINE YELLOW; GLUCOSE, URINE NEGATIVE (NEGATIVE); KETONES,URINE NEGATIVE (NEGATIVE); LEUKOCYTE ESTERASE,URINE NEGATIVE (NEGATIVE); NITRITE,URINE NEGATIVE (NEGATIVE); PROTEIN,URINE NEGATIVE (NEGATIVE); URINE SPECIFIC GRAVITY 1.026; UROBILINOGEN,URINE NEGATIVE mg/dL (<2.0)
[2018-09-01 21:46] LABS: ANION GAP 9 (5-19); BLOOD UREA NITROGEN 12 mg/dL (7-20); CALCIUM 9.4 mg/dL (8.4-10.2); CARBON DIOXIDE 30 mmol/L (22-30); CHLORIDE 104 mmol/L (98-107); GLUCOSE 85 mg/dL (75-110); POTASSIUM 3.7 mmol/L (3.6-5.0); SODIUM 142.6 mmol/L (137-145)
--- NOTE | 2018-09-01 22:26 | ER Document Report ---
ED General - General Chief Complaint: Vertigo Stated Complaint: DIZZINESS Time Seen by Provider: 09/01/18 20:08 Primary Care Provider: CARLINE LAMB MD [ACTIVE STAFF] - Follow up as needed Notes: 33-year-old female patient emergency department for vertigo and dizziness. Patient states that she has had vertigo in the past but never this bad. Seems to get worse when she lies flat. The dizziness is extreme. No vomiting. No other symptoms at this time. Denies any neck pain. Denies any fever, chills, sweats. TRAVEL OUTSIDE OF THE [place] IN LAST 30 DAYS: No - HPI Onset: Just prior to arrival Quality of pain: No pain Severity: Moderate Pain Level: Denies Associated symptoms: Other - Vertigo and dizziness - Related Data Allergies/Adverse Reactions: No Known Allergies Allergy (Verified 09/01/18 20:06) Past Medical History - General Information source: Patient - Social History Smoking Status: Former Smoker Frequency of alcohol use: None Drug Abuse: None Lives with: Family Family History: Reviewed & Not Pertinent Patient has suicidal ideation: No Patient has homicidal ideation: No - Medical History Medical History: Negative Renal/ Medical History: Denies: Hx Peritoneal Dialysis Past Surgical History: Reports: Hx Orthopedic Surgery - left ankle - Immunizations Hx Diphtheria, Pertussis, Tetanus Vaccination: Yes Review of Systems - Review of Systems Notes: Constitutional: denies: Chills, Diaphoresis, Fever, Malaise, Weakness EENT: denies: Eye discharge, Blurred vision, Tearing, Double vision, Nose congestion, Nose discharge, Throat swelling, Mouth pain Cardiovascular: denies: Palpitations, Heart racing, Orthopnea, Dyspnea, Chest pa in Respiratory: denies: Cough, Hurts to breathe, Wheezing, Shortness of breath Gastrointestinal: denies: Abdominal pain, Diarrhea, Nausea, Vomiting, Black stools, bright red blood in stool Genitourinary: denies: Burning, Dysuria, Discharge, Frequency, Flank pain, Hematuria Musculoskeletal: denies: Joint pain, Joint swelling, Muscle pain, Muscle stiffness, back pain Hematologic/Lymphatic: denies: Anemia, Easy bleeding, Easy bruising, Blood clots Neurological/Psychological: denies: Confusion, Dementia, Depression, Loss of consciousness. Positive for vertigo and dizziness Skin: No lesions, no masses, no skin breakdown, no abscesses Physical Exam - Vital signs Vitals: Temp Pulse Resp BP Pulse Ox 98.6 F 97 16 133/61 H 100 09/01/18 16:26 09/01/18 16:26 09/01/18 16:26 09/01/18 16:26 09/01/18 16:26 Interpretation: Normal - General General appearance: Appears well, Alert - HEENT Head: Normocephalic, Atraumatic Eyes: Normal Pupils: PERRL Pharynx: Normal Neck: Normal. No: Carotid bruit, Kernig's, Lymphadenopathy, Meningismus - Respiratory Respiratory status: No respiratory distress Chest status: Nontender Breath sounds: Normal Chest palpation: Normal - Cardiovascular Rhythm: Regular Heart sounds: Normal auscultation Murmur: No - Abdominal Inspection: Normal Distension: No distension Bowel sounds: Normal Tenderness: Nontender Organomegaly: No organomegaly - Back Back: Normal, Nontender - Extremities General upper extremity: Normal inspection, Nontender, Normal color, Normal ROM, Normal temperature General lower extremity: Normal inspection, Nontender, Normal color, Normal ROM, Normal temperature, Normal weight bearing. No: Vanessa's sign - Neurological Neuro grossly intact: Yes Cognition: Normal Orientation: AAOx4 [place] Coma Scale Eye Opening: Spontaneous Malini Coma Scale Verbal: Oriented [place] Coma Scale Motor: Obeys Commands Malini Coma Scale Total: 15 Speech: Normal Motor strength normal: LUE, RUE, LLE, RLE Sensory: Normal Notes: Mild nystagmus when dropping head with a head turn to the left. Seems to reproduce patient's symptoms but patient seems to be very over exaggerated. - Psychological Associated symptoms: Normal affect, Normal mood - Skin Skin Temperature: Warm Skin Moisture: Dry Skin Color: Normal Course - Re-evaluation Re-evalutation: 09/02/18 01:05 Laboratory 09/01/18 09/01/18 09/01/18 20:45 20:45 20:45 WBC 8.1 RBC 4.29 Hgb 12.4 Hct 36.2 MCV 84 MCH 28.9 MCHC 34.2 RDW 15.0 H Plt Count 343 Seg Neutrophils % 52.1 Lymphocytes % 36.0 Monocytes % 7.4 Eosinophils % 3.4 Basophils % 1.1 Absolute Neutrophils 4.2 Absolute Lymphocytes 2.9 Absolute Monocytes 0.6 Absolute Eosinophils 0.3 Absolute Basophils 0.1 Sodium 142.6 Potassium 3.7 Chloride 104 Carbon Dioxide 30 Anion Gap 9 BUN 12 Creatinine 0.63 Est GFR ( Amer) > 60 Est GFR (Non-Af Amer) > 60 Glucose 85 Calcium 9.4 TSH Free T4 Urine Color YELLOW Urine Appearance SLIGHTLY-CLOUDY Urine pH 7.0 Ur Specific Lafe 1.026 Urine Protein NEGATIVE Urine Glucose (UA) NEGATIVE Urine Ketones NEGATIVE Urine Blood NEGATIVE Urine Nitrite NEGATIVE Urine Bilirubin NEGATIVE Urine Urobilinogen NEGATIVE Ur Leukocyte Esterase NEGATIVE Urine WBC (Auto) 1 Urine RBC (Auto) 3 Squamous Epi Cells Auto 1 Amorphous Sediment Auto TRACE Urine Mucus (Auto) FEW Urine Ascorbic Acid 20 H Urine HCG, Qual NEGATIVE 09/01/18 20:45 WBC RBC Hgb Hct MCV MCH MCHC RDW Plt Count Seg Neutrophils % Lymphocytes % Monocytes % Eosinophils % Basophils % Absolute Neutrophils Absolute Lymphocytes Absolute Monocytes Absolute Eosinophils Absolute Basophils Sodium Potassium Chloride Carbon Dioxide Anion Gap BUN Creatinine Est GFR ( Amer) Est GFR (Non-Af Amer) Glucose Calcium TSH 4.01 Free T4 1.07 Urine Color Urine Appearance Urine pH Ur Specific [place]fe Urine Protein Urine Glucose (UA) Urine Ketones Urine Blood Urine Nitrite Urine Bilirubin Urine Urobilinogen Ur Leukocyte Esterase Urine WBC (Auto) Urine RBC (Auto) Squamous Epi Cells Auto Amorphous Sediment Auto Urine Mucus (Auto) Urine Ascorbic Acid Urine HCG, Qual Head CT 09/01/18 22:37 IMPRESSION: No acute intracranial findings. There is no acute pathology seen on the CT scan of the head with and without contrast. Labs are normal. Patient's symptoms are primarily positional some more than likely this is a benign positional vertigo issue. Will prescribe her some meclizine. Give her a work note. Advised to follow-up with her primary care doctor for further evaluation and treatment. - Vital Signs Vital signs: Temp Pulse Resp BP Pulse Ox 97.7 F 84 20 100/55 L 100 09/02/18 01:25 09/02/18 01:25 09/02/18 01:25 09/02/18 01:25 09/02/18 01:25 - Laboratory Result Diagrams: 09/01/18 20:45 09/01/18 20:45 Laboratory results interpreted by me: 09/01/18 09/01/18 20:45 20:45 RDW 15.0 H Urine Ascorbic Acid 20 H Discharge - Discharge Clinical Impression: Vertigo Hypertension Qualifiers: Hypertension type: unspecified Qualified Code(s): I10 - Essential (primary) hypertension Condition: Good Disposition: HOME, SELF-CARE Instructions: High Blood Pressure ([facility]), Vertigo ([facility]) Additional Instructions: We think that your symptoms are due to vertigo. As mentioned to you in the emergency department this can be from an inner ear dysfunction. You may benefit from evaluation by an research statistician. In the event that your symptoms are getting worse please do not hesitate to return. Incidentally, your blood pressure was slightly elevated. It will be very important that you follow-up with your regular doctor to have your blood pressure rechecked as untreated hypertension can cause abnormal symptoms as well. I do not feel like we need to start you on treatment at this time but you will need outpatient follow-up and evaluation Prescriptions: Meclizine HCl [Antivert 25 mg Tablet] 25 mg PO TID PRN 7 Days #21 tablet PRN Reason: Dizziness Forms: Return to Work Referrals: CARLINE LAMB MD [ACTIVE STAFF] - Follow up as needed
[2018-09-01 23:18] LABS: FREE T4 (FREE THYROXINE) 1.07 ng/dL (0.78-2.19)
[2018-09-01 23:32] LABS: THYROID STIMULATING HORMONE 4.01 uIU/mL (0.47-4.68)
--- NOTE | 2018-09-02 00:31 | RADIOLOGY REPORT (SQ) ---
CLINICAL HISTORY: severe vertigo and passing out COMPARISON: None. 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 FINDINGS: There is no acute hemorrhage, mass effect or midline shift. Mckeon-white differentiation is preserved. There is no hydrocephalus. There is no significant volume loss for age. The calvarium is intact. Orbits and globes are unremarkable. There is moderate thickening of the left maxillary sinus with mild thickening of the right maxillary sinus. There is no abnormal enhancement. Mastoid air cells are clear. IMPRESSION: No acute intracranial findings.
--- NOTE | 2018-09-02 00:31 | RADIOLOGY REPORT (SQ) ---
CLINICAL HISTORY: severe vertigo and passing out COMPARISON: None. 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 FINDINGS: There is no acute hemorrhage, mass effect or midline shift. Mckeon-white differentiation is preserved. There is no hydrocephalus. There is no significant volume loss for age. The calvarium is intact. Orbits and globes are unremarkable. There is moderate thickening of the left maxillary sinus with mild thickening of the right maxillary sinus. There is no abnormal enhancement. Mastoid air cells are clear. IMPRESSION: No acute intracranial findings.
[2018-09-02 02:43] VITALS: BP 100/55
--- NOTE | 2018-09-03 10:10 | EKG REPORT ---
SEVERITY:- BORDERLINE ECG - SINUS RHYTHM BORDERLINE T ABNORMALITIES, ANT-LAT LEADS BORDERLINE PROLONGED QT INTERVAL : Confirmed by: Karl Apodaca 03-Sep-2018 10:09:45
== END 2018-09-02 01:30 | disposition home or self-care (01) ==
LOC: ER 16:17
DX: R42 Dizziness and giddiness (principal); I10 Essential (primary) hypertension
CPT/HCPCS: 93005; 99284; 36415; 84439; 84443; 85025; 81025; 80048; 81001; 70450; 70460; 93010; S0119